=== PATIENT | male | born 1940 | race Caucasian/White ===

== ENCOUNTER 2021-06-09 08:14 | Emergency (ER) | payer MEDICARE, SELFPAY ==
--- NOTE | ~2021-06-09 | US_ITS ---
EXAMINATION: US VENOUS ULTRASOUND WITH DOPPLER LOWER EXTREMITY, LEFT CLINICAL INFORMATION: COMPARISON: None TECHNIQUE: Ultrasound of the deep veins is performed from the hip to the calf with compression sonography and color and pulse Doppler assessment. Spectral analysis with color-flow imaging is performed. FINDINGS: There is normal venous compression and respiratory variation and augmented flow. The visualized common femoral vein, superficial femoral vein, profunda femoral vein, popliteal vein, and the trifurcation region shows no evidence of deep venous thrombosis. There is no significant popliteal fossa cyst. If the patient's symptoms persist, followup ultrasound in 5 days 7 days might be of value to exclude proximal propagation from a non-visualized calf vein. US/US venous duplex LE LT IMPRESSION: No DVT demonstrated in the left lower extremity.
--- NOTE | ~2021-06-09 | US_ITS ---
EXAMINATION: ULTRASOUND ARTERIAL DUPLEX LOWER EXTREMITY LEFT CLINICAL INFORMATION: Left lower extremity pain and swelling. COMPARISON: None TECHNIQUE: Multiple 2-D grayscale and duplex Doppler ultrasound images of the arteries of the left lower extremity were obtained. FINDINGS: Mild to moderate scattered echogenic atherosclerotic plaque is seen in the left lower extremity. Peak systolic arterial velocities are as follows in centimeters per second: Common femoral: 118 Profunda femoral: 94 Proximal superficial femoral: 98 Mid superficial femoral: 75 Distal superficial femoral: 34 Popliteal: 46 Posterior tibial: 113 Peroneal: 62 US/US arterial duplex LE LT IMPRESSION: No hemodynamically significant arterial stenosis in the left lower extremity.
--- NOTE | ~2021-06-09 | CT_ITS ---
EXAMINATION CT CHEST, ABDOMEN AND PELVIS WITH CONTRAST CLINICAL INFORMATION: Left lower quadrant abdominal pain radiating to chest. COMPARISON: CT abdomen/pelvis dated 04/29/2016 TECHNIQUE: Multidetector volumetric CT imaging of the chest, abdomen and pelvis was obtained after the administration of 85 mL of intravenous Omnipaque 350 without immediate adverse reactions. Coronal and sagittal reformats were reviewed. This CT examination was performed using dose optimization techniques as appropriate, variously including the following: *Automated exposure control *Adjustment of mA and/or kV according to patient size (this includes techniques or standardized protocols for targeted exams where dose is matched to indication/reason for exam; i.e. extremities or head) *Use of iterative reconstruction technique DLP: 735 mGy-cm. FINDINGS: CHEST LUNGS/PLEURA: Mild emphysema. Mild bronchial wall thickening without bronchiectasis. Calcified granuloma, right lower lobe. No suspicious pulmonary nodules. There is no pleural effusion. No pleural mass or thickening. MEDIASTINUM/KP: Normal heart size. No pericardial effusion. Coronary calcifications. No mediastinal, hilar or supraclavicular lymphadenopathy by size criteria. Shotty reactive, lymph nodes are present. There is a calcified right paratracheal lymph node. CHEST WALL/AXILLA: Unremarkable. ABDOMEN/PELVIS HEPATOBILIARY: Liver normal in size, contour and morphology. There are a few scattered hepatic cysts, with the largest cyst in the right lobe having decreased in size prior exam. No suspicious lesions. No intra or extrahepatic biliary dilation. Cholelithiasis. No pericholecystic fluid. PANCREAS: Unremarkable. SPLEEN: Unremarkable. ADRENAL GLANDS: Unremarkable. KIDNEYS, URETERS AND BLADDER: There is a 3 mm stone in the proximal left ureter, located 7 cm distal to the ureteral pelvic junction associated with mild upstream hydroureter, pelvocaliectasis and diminished enhancement of the left kidney with respect to the right. Bilateral simple fluid attenuating renal cysts are present. These are benign and require no further follow-up. Right ureter normal in course and caliber. Normal bladder. GASTROINTESTINAL TRACT: Status post sigmoid colectomy. The remaining left colon shows scattered colonic diverticula without evidence of diverticulitis. Moderate hiatal hernia. Stomach otherwise unremarkable. Normal small bowel. PELVIC VISCERA: Unremarkable. LYMPH NODES: No lymphadenopathy. PERITONEUM/BODY WALL: Unremarkable. VASCULAR STRUCTURES: Status post aortobiiliac endovascular stent graft. The excluded sac has decreased measuring at most 4.3 cm, previously 6.5 cm. OSSEOUS STRUCTURES No acute or suspicious osseous abnormalities. CT/CT abdomen pelvis w con IMPRESSION: CHEST: * No acute findings within the chest. * Mild emphysema. ABDOMEN/PELVIS: * There is a 3 mm stone in the proximal LEFT ureter associated with mild obstructive uropathy. * Status post aortobiiliac endovascular stent graft repair of an abdominal aortic aneurysm, the excluded sac of which has decreased in size on the prior exam. * Cholelithiasis. * Sigmoid colectomy. Remaining left colon shows scattered colonic diverticula without evidence of diverticulitis. * Moderate hiatal hernia.
--- NOTE | 2021-06-09 08:22 | ED_ITS ---
HPI - General Adult General Chief complaint: Abdominal Pain <CRISTO Calvin Last Filed: 06/09/21 13:10> Stated complaint: abd pain <CRISTO Calvin Last Filed: 06/09/21 13:10> Time Seen by Provider: 06/09/21 08:22 <CRISTO Calvin Last Filed: 06/09/21 13:10> Source: patient, family (son) and EMS <CRISTO Calvin Last Filed: 06/09/21 13:10> Mode of arrival: EMS <CRISTO Calvin Last Filed: 06/09/21 13:10> Limitations: no limitations <CRISTO Calvin Last Filed: 06/09/21 13:10> History of Present Illness HPI narrative: Patient is a 81 year old male presenting to the emergency department today with left lower quadrant abdominal pain. Patient states that for the last few days he has had left lower quadrant abdominal pain. Patient denies any dizziness, lightheadedness, nausea, vomiting, fever, chills, blurry vision, double vision, loss of vision, chest pain, difficulty breathing, shortness of breath, back pain, night sweats, pain with urination, increased urinary frequency, increased urinary urgency, blood in his urine or stool, syncope or a near syncopal episode, recent trauma or falls, bowel incontinence, bladder incontinence, bowel retention, bladder retention, or any other complaints at this time. Patient states that he had a perforated bowel years ago that he had to have a colectomy for. Patient states that after the procedure, he had issues urinating and had to see a urologist but that has since resolved. <CRISTO Calvin - Last Filed: 06/09/21 13:10> Onset (ago): day(s) <CRISTO Calvin Last Filed: 06/09/21 13:10> Location: abdomen <CRISTO Calvin Last Filed: 06/09/21 13:10> Radiation: non-radiation <CRISTO Calvin Last Filed: 06/09/21 13:10> Severity: mild <CRISTO Calvin Last Filed: 06/09/21 13:10> Severity scale (1-10): 3 <CRISTO Calvin Filed: 06/09/21 13:10> Quality: dull <Carol CRISTO Pacheco - Last Filed: 06/09/21 13:10> Pain Consistency: constant <Carol CRISTO Pacheco - Last Filed: 06/09/21 13:10> Relieving factors: none <CRISTO Calvin - Last Filed: 06/09/21 13:10> Exacerbating factors: none <CRISTO Calvin - Last Filed: 06/09/21 13:10> Associated symptoms: denies other symptoms <CRISTO Calvin - Last Filed: 06/09/21 13:10> Treatments prior to arrival: none <CRISTO Calvin - Last Filed: 06/09/21 13:10> Related Data Allergies/adverse reactions: Allergies Allergy/AdvReac Type Severity Reaction Status Date / Time No Known Allergies Allergy Unverified 11/07/19 15:51 [No Known Allergies*] PENICILLIN Allergy Unknown SKIN Uncoded 08/08/17 00:00 BLISTERS <CRISTO Calvin - Last Filed: 06/09/21 13:10> Review of Systems Constitutional: Constitutional: Reports no additional constitutional complaints, Denies chills, Denies fever(s) and Denies night sweats <CRISTO Calvin - Last Filed: 06/09/21 13:10> Eyes: Eyes: Reports no additional eye complaints, Denies blurry vision, Denies change in vision, Denies diplopia, Denies eye discharge, Denies loss of vision and Denies eye pain <CRISTO Calvin - Last Filed: 06/09/21 13:10> ENT: Denies dizziness <CRISTO Calvin - Last Filed: 06/09/21 13:10> Cardiovascular: Cardiovascular: Reports no additional cardiovascular complaints, Denies chest pain, Denies lightheadedness, Denies Loss of Consciousness and Denies dyspnea <CRISTO Calvin - Last Filed: 13:10> Respiratory: Respiratory: Reports no additional respiratory complaints and Denies dyspnea <CRISTO Calvin - Last Filed: 06/09/21 13:10> Gastrointestinal: Gastrointestinal: Reports no additional gastrointestinal complaints, Reports abdominal pain, Denies melena, Denies hematochezia, Denies change in bowel habits and Denies change in stool character <CRISTO Calvin - Last Filed: 06/09/21 13:10> Genitourinary: Genitourinary: Reports no additional male genitourinary complaints, Denies hematuria, Denies oliguria, Denies difficulty urinating, Denies dysuria, Denies urinary frequency, Denies urinary hesitancy, Denies urinary incontinence and Denies urinary urgency <CRISTO Calvin - Last Filed: 06/09/21 13:10> Musculoskeletal: Musculoskeletal: Reports no additional musculoskeletal complaints, Denies numbness and Denies tingling <CRISTO Calvin - Last Filed: 06/09/21 13:10> Neurologic: Denies dizziness, Denies loss of vision, Denies numbness and Denies tingling <CRISTO Calvin - Last Filed: 06/09/21 13:10> Psychiatric: Psychiatric: Reports no additional psychiatric complaints <CRISTO Calvin - Last Filed: 06/09/21 13:10> Endocrine: Endocrine: Reports no additional endocrine complaints <CRISTO Calvin - Last Filed: 06/09/21 13:10> Hematologic/Lymphatic: Hematologic/Lymphatic: Reports no additional hematologic/lymphatic complaints <CRISTO Calvin - Last Filed: 06/09/21 13:10> Allergic/Immunologic: Allergic/Immunologic: Reports no additional allergic/immunologic complaints <CRISTO Calvin - Last Filed: 06/09/21 13:10> PMF Past Medical History Attestation statement: The following information was validated with the patient. <CRISTO Calvin - Last Filed: 06/09/21 13:10> Source: old records reviewed <CRISTO Calvin - Last Filed: 06/09/21 13:10> Medical History: Medical History Bowel obstruction Enlarged aorta <CRISTO Calvin - Last Filed: 06/09/21 13:10> Surgical History: Surgical History History of colostomy reversal <CRISTO Calvin - Last Filed: 06/09/21 13:10> Social History Social History: Social History Patient Tobacco Use Status: Former Tobacco user <CRISTO Calvin - Last Filed: 06/09/21 13:10> Physical Exam ED Vital Signs: Vital Signs - 24 hr 06/09/21 08:23 06/09/21 08:57 06/09/21 10:43 Temperature 98.7 F 98.0 F Pulse Rate 76 74 78 Respiratory Rate 20 16 18 Blood Pressure 162/74 H 145/71 H 160/62 H Pulse Oximetry 100 97 99 06/09/21 11:00 06/09/21 12:34 Temperature 98.1 F Pulse Rate 75 79 Respiratory Rate 18 16 Blood Pressure 152/58 H 153/75 H Pulse Oximetry 99 99 BMI result Body Mass Index 29.7 <CRISTO Calvin - Last Filed: 06/09/21 13:10> Const General: cooperative, no acute distress, alert and awake <CRISTO Calvin - Last Filed: 06/09/21 13:10> Nutritional Appearance: well nourished <CRISTO Calvin - Last Filed: 06/09/21 13:10> Orientation/consciousness: patient oriented x3 <CRISTO Calvin - Last Filed: 06/09/21 13:10> Limitations: no limitations <CRISTO Calvin - Last Filed: 06/09/21 13:10> HENMT Head: Yes normal to inspection and Yes atraumatic <CRISTO Calvin - Last Filed: 06/09/21 13:10> Ears: hearing grossly normal bilaterally and external ears normal <CRISTO Calvin - Last Filed: 06/09/21 13:10> General nose exam: Normal external nose present, no nasal discharge noted and no epistaxis <CRISTO Calvin - Last Filed: 06/09/21 13:10> Face and sinus: Yes normal facial exam, No abrasion and No laceration <CRISTO Calvin - Last Filed: 06/09/21 13:10> Mouth: Normal oral and palatal mucosa present, no drooling and no muffled voice <CRISTO Calvin - Last Filed: 06/09/21 13:10> Eyes General: appearance normal, both eyes and all related structures <Carol Pacheco NE - Last Filed: 06/09/21 13:10> Periorbital: periorbital findings normal <Carol Pacheco NE - Last Filed: 06/09/21 13:10> Eyelids: Yes eyelids normal <Carol Pacheco NE - Last Filed: 06/09/21 13:10> Conjunctivae: conjunctivae normal <Carol Pacheco NE - Last Filed: 06/09/21 13:10> Pupils: Equal, round and reactive pupils present <Carol Pacheco NE - Last Filed: 06/09/21 13:10> EOM: EOMs intact bilaterally <Carol Pacheco NE - Last Filed: 06/09/21 13:1 0> Neck Neck: Yes normal visual inspection, Yes full ROM and Yes no lymphadenopathy <Carol Pacheco NE - Last Filed: 06/09/21 13:10> Chest Chest palpation & inspection: normal inspection of the chest <Carol Pacheco NE - Last Filed: 06/09/21 13:10> Resp Effort & Inspection: normal respiratory effort and able to speak in complete sentences <Carol Pacheco NE - Last Filed: 06/09/21 13:10> Auscultation: clear to auscultation bilaterally <Carol Pacheco NE - Last Filed: 06/09/21 13:10> Cardio Rate: regular rate <Carol Pacheco NE - Last Filed: 06/09/21 13:10> Rhythm: regular rhythm <Carol Pacheco NE - Last Filed: 06/09/21 13:10> GI Inspection: Yes normal to inspection <Carol Pacheco [facility] Last Filed: 06/09/21 13:10> Palpation (GI): Soft to palpation, not firm, nontender, no guarding and not rigid <Ryan Pacheco NE - Last Filed: 06/09/21 13:10> Neuro General: patient oriented x3 and moves all extremities <Carol Pacheco NE - Last Filed: 06/09/21 13:10> Cranial nerves: Yes Equal, round and reactive pupils present <Carol Pacheco NE - Last Filed: 06/09/21 13:10> Cognition (Neuro): normal cognition <CRISTO Calvin - Last Filed: 06/09/21 13:10> Motor exam (neuro): 5/5 motor strength present throughout <CRISTO Calvin - Last Filed: 06/09/21 13:10> Sensory Exam: Normal double simultaneous stimulation for sensation <CRISTO Calvin - Last Filed: 06/09/21 13:10> Coordination: [id number] test normal <CRISTO Calvin - Last Filed: 06/09/21 13:10> Extrem General: Yes normal to inspection, Yes full ROM and Yes capillary refill normal <CRISTO Calvin - Last Filed: 06/09/21 13:10> Psych Appearance: grossly normal <CRISTO Calvin - Last Filed: 06/09/21 13:10> Mental Status: mental status grossly normal <CRISTO Calvin - Last Filed: 06/09/21 13:10> Affect: normal affect <CRISTO Calvin - Last Filed: 06/09/21 13:10> Attitude: cooperative <CRISTO Calvin - Last Filed: 06/09/21 13:10> Thought process: Normal thought process present <CRISTO Calvin Last Filed: 06/09/21 13:10> Thought content: Normal thought content present <CRISTO Calvin - Last Filed: 13:10> Insight: Good insight present (Psych) <CRISTO Calvin Last Filed: 06/09/21 13:10> Medical Decision Making MDM Narrative Medical decision making narrative: Patient is a 81 year old male presenting to the emergency department today with abdominal pain. Patient's physical exam was unremarkable. Patient's blood work was unremarkable. Patient's urine showed no acute process/infection. Patient's EKG was unremarkable. Patient's abdominal CT showed an acute 3mm left kidney stone. Patient's bladder scan after he voided 200ml showed a retention of 546ml. I spoke to Dr. Degroot, the Urologist residential direct support professional, who recommended the patient be given a polanco with a cap and follow up with him for a void trial. I explained my physical exam findings as well as all test results to the patient and the cristo sarmiento's son. I answered all questions asked by the patient and the patient's son. Patient received IV Morphine which he stated helped his symptoms significantly. I stressed the importance of the patient taking his medication as prescribed. I stressed the importance of the patient following up with his primary care provider and a urologist. I stressed the importance of the patient returning to the emergency department immediately if his symptoms were to worsen or if he were to develop any dizziness, shortness of breath, difficulty breathing, chest pain, blurry vision, loss of vision, nausea, vomiting, abdominal pain, fever, chills, back pain, or any other complaints. Patient and the patient's son verbalized agreement and understanding with this treatment plan and discharge. <CRISTO Calvin - Last Filed: 06/09/21 13:10> Differential Diagnosis Differential Diagnosis: renal calculi, bowel perforation, urinary retention, constipation <CRISTO Calvin - Last Filed: 06/09/21 13:10> Medical Records Medical records reviewed: Yes I reviewed the patient's medical records. <CRISTO Calvin - Last Filed: 06/09/21 13:10> Lab Data Lab results reviewed: Yes I reviewed the patient's lab results. <CRISTO Calvin - Last Filed: 06/09/21 13:10> Result diagrams: : 06/09/21 08:37 06/09/21 09:32 <CRISTO Calvin - Last Filed: 06/09/21 13:10> Labs: Lab Results 06/09/21 06/09/21 06/09/21 Range/Units 08:37 08:37 08:37 WBC 9.4 (4.8-10.8) X10*3/uL RBC 4.28 L (4.60-5.80) X10*6/uL Hgb 12.5 L (14.0-18.0) g/dl Hct 37.3 L (42.0-52.0) % MCV 87.1 (80.0-98.0) fL MCH 29.2 (27.0-33.0) pg MCHC 33.5 (31.0-36.0) g/dl RDW 13.7 (11.0-16.0) % Plt Count 170 (160-400) X10*3/uL MPV 9.4 (9.4-12.4) fL Immature Gran % (Auto) 1.3 H (0.0-0.4) % Neut % (Auto) 74.3 H (45-73) % Lymph % (Auto) 12.2 L (20-40) % Randolph % (Auto) 11.3 H (2-11) % Eos % (Auto) 0.5 (0-4) % Baso % (Auto) 0.4 (0-2) % Lymph # (Auto) 1.2 (1.2-4.9) X10*3/uL Randolph # (Auto) 1.1 (0.1-1.2) X10*3/uL Eos # (Auto) 0.1 (0.0-0.4) X10*3/uL Baso # (Auto) 0.0 (0.0-0.2) X10*3/uL Abs Immat Gran (auto) 0.12 H (0.00-0.03) X10*3/uL Absolute Neuts (auto) 7.0 (2.0-8.3) x10*3/uL Absolute Nucleated RBC 0.000 (0.0-0.012) X10*3/uL Nucleated RBC % (auto) 0.0 (0.0-0.2) /100WBC PT (9.9-13.0) SEC INR (0.9-1.1) APTT (24.1-38.0) SEC Sodium (135-145) mmol/L Potassium (3.3-5.1) mmol/L Chloride (96-108) mmol/L Carbon Dioxide (22-29) mmol/L Anion Gap (12-20) BUN (9-16) mg/dL Creatinine (0.5-1.4) mg/dL Estim Creat Clear Calc Estimated GFR Random Glucose (60-115) mg/dL Lactic Acid 1.6 (0.5-2.0) mmol/L Calcium (8.4-10.2) mg/dL Magnesium (1.6-2.6) mg/dL Total Bilirubin (0.0-1.0) mg/dL AST (5-37) U/L ALT (0-40) U/L Alkaline Phosphatase (39-117) U/L Troponin I High Sens 4.4 (<3.5-35.0) ng/L Total Protein (6.5-8.0) g/dL Albumin (3.5-5.0) g/dL Urine Color Urine Appearance Urine pH (5.0-8.0) Ur Specific [place] (1.005-1.025) Urine Protein (NEG-TRACE) MG/DL Urine Glucose (UA) (NEG) MG/DL Urine Ketones (NEG) MG/DL Urine Blood (NEG) Urine Nitrite (NEG) Ur Leukocyte Esterase (NEG) Urine RBC (0) /HPF Urine WBC (0-4) /HPF Ur Squamous Epith Cells /LPF Urine Bacteria /LPF Urine Mucus /LPF 06/09/21 06/09/21 06/09/21 Range/Units 09:32 09:32 11:28 WBC (4.8-10.8) X10*3/uL RBC (4.60-5.80) X10*6/uL Hgb (14.0-18.0) g/dl Hct (42.0-52.0) % MCV (80.0-98.0) fL MCH (27.0-33.0) pg MCHC (31.0-36.0) g/dl RDW (11.0-16.0) % Plt Count (160-400) X10*3/uL MPV (9.4-12.4) fL Immature Gran % (Auto) (0.0-0.4) % Neut % (Auto) (45-73) % Lymph % (Auto) (20-40) % Randolph % (Auto) (2-11) % Eos % (Auto) (0-4) % Baso % (Auto) (0-2) % Lymph # (Auto) (1.2-4.9) X10*3/uL Randolph # (Auto) (0.1-1.2) X10*3/uL Eos # (Auto) (0.0-0.4) X10*3/uL Baso # (Auto) (0.0-0.2) X10*3/uL Abs Immat Gran (auto) (0.00-0.03) X10*3/uL Absolute Neuts (auto) (2.0-8.3) x10*3/uL Absolute Nucleated RBC (0.0-0.012) X10*3/uL Nucleated RBC % (auto) (0.0-0.2) /100WBC PT 14.8 H (9.9-13.0) SEC INR 1.3 H (0.9-1.1) APTT 33.7 (24.1-38.0) SEC Sodium 137 (135-145) mmol/L Potassium 4.7 (3.3-5.1) mmol/L Chloride 106 (96-108) mmol/L Carbon Dioxide 23 (22-29) mmol/L Anion Gap 13 (12-20) BUN 19 H (9-16) mg/dL Creatinine 1.62 H (0.5-1.4) mg/dL Estim Creat Clear Calc 42.6 Estimated GFR 41 Random Glucose 103 (60-115) mg/dL Lactic Acid (0.5-2.0) mmol/L Calcium 8.9 (8.4-10.2) mg/dL Magnesium 2.1 (1.6-2.6) mg/dL Total Bilirubin 0.5 (0.0-1.0) mg/dL AST 22 (5-37) U/L ALT 17 (0-40) U/L Alkaline Phosphatase 59 (39-117) U/L Troponin I High Sens (<3.5-35.0) ng/L Total Protein 6.8 (6.5-8.0) g/dL Albumin 4.0 (3.5-5.0) g/dL Urine Color YELLOW Urine Appearance CLEAR Urine pH 6.0 (5.0-8.0) Ur Specific [place] 1.010 (1.005-1.025) Urine Protein NEG (NEG-TRACE) MG/DL Urine Glucose (UA) NEG (NEG) MG/DL Urine Ketones NEG (NEG) MG/DL Urine Blood TRACE (NEG) Urine Nitrite NEG (NEG) Ur Leukocyte Esterase NEG (NEG) Urine RBC 1-4 (0) /HPF Urine WBC 0 (0-4) /HPF Ur Squamous Epith Cells TRACE /LPF Urine Bacteria NONE /LPF Urine Mucus 1+ /LPF <CRISTO Calvin - Last Filed: 06/09/21 13:10> Imaging Data CT scan abd/chest: Attestation: I personally reviewed and interpreted this imaging study as follows: <CRISTO Calvin - Last Filed: 06/09/21 13:10> Radiologist's impression: EXAMINATION CT CHEST, ABDOMEN AND PELVIS WITH CONTRAST CLINICAL INFORMATION: Left lower quadrant abdominal pain radiating to chest.? COMPARISON: CT abdomen/pelvis dated 04/29/2016? TECHNIQUE: Multidetector volumetric CT imaging of the chest, abdomen and pelvis was obtained after the administration of 85 mL of intravenous Omnipaque 350 without immediate adverse reactions.? Coronal and sagittal reformats were reviewed. This CT examination was performed using dose optimization techniques as appropriate, variously including the following: *Automated exposure control *Adjustment of mA and/or kV according to patient size (this includes techniques or standardized protocols for targeted exams where dose is matched to indication/reason for exam; i.e. extremities or head) *Use of iterative reconstruction technique DLP: 735 mGy-cm. FINDINGS: CHEST LUNGS/PLEURA: Mild emphysema. Mild bronchial wall thickening without bronchiectasis. Calcified granuloma, right lower lobe. No suspicious pulmonary nodules. There is no pleural effusion. No pleural mass or thickening.? MEDIASTINUM/KP: Normal heart size. No pericardial effusion. Coronary calcifications. No mediastinal, hilar or supraclavicular lymphadenopathy by size criteria. Shotty reactive, lymph nodes are present. There is a calcified right paratracheal lymph node.? CHEST WALL/AXILLA: Unremarkable.? ABDOMEN/PELVIS HEPATOBILIARY: Liver normal in size, contour and morphology. There are a few scattered hepatic cysts, with the largest cyst in the right lobe having decreased in size prior exam. No suspicious lesions. No intra or extrahepatic biliary dilation. Cholelithiasis. No pericholecystic fluid. PANCREAS: Unremarkable. SPLEEN: Unremarkable. ADRENAL GLANDS: Unremarkable. KIDNEYS, URETERS AND BLADDER: There is a 3 mm stone in the proximal left ureter, located 7 cm distal to the ureteral pelvic junction associated with mild upstream hydroureter, pelvocaliectasis and diminished enhancement of the left kidney with respect to the right. Bilateral simple fluid attenuating renal cysts are present. These are benign and require no further follow-up. Right ureter normal in course and caliber. Normal bladder. GASTROINTESTINAL TRACT: Status post sigmoid colectomy. The remaining left colon shows scattered colonic diverticula without evidence of diverticulitis. Moderate hiatal hernia. Stomach otherwise unremarkable. Normal small bowel.? PELVIC VISCERA: Unremarkable. LYMPH NODES: No lymphadenopathy. PERITONEUM/BODY WALL: Unremarkable. VASCULAR STRUCTURES: Status post aortobiiliac endovascular stent graft. The excluded sac has decreased measuring at most 4.3 cm, previously 6.5 cm. OSSEOUS STRUCTURES? No acute or suspicious osseous abnormalities. ? CT/CT abdomen pelvis w con IMPRESSION: CHEST: *? No acute findings within the chest. *? Mild emphysema. ? ABDOMEN/PELVIS: *? There is a 3 mm stone in the proximal LEFT ureter associated with mild obstructive uropathy. *? Status post aortobiiliac endovascular stent graft repair of an abdominal aortic aneurysm, the excluded sac of which has decreased in size on the prior exam. *? Cholelithiasis. *? Sigmoid colectomy. Remaining left colon shows scattered colonic diverticula without evidence of diverticulitis. *? Moderate hiatal hernia. Dictated By: Chay Zavala MD Signed By: Electronically signed by Chay Zavala MD 06/09/21 1109 <CRISTO Calvin - Last Filed: 06/09/21 13:10> ECG Data Attestation: I personally reviewed and interpreted this ECG as follows: <CRISTO Villegas - Last Filed: 06/09/21 13:10> Prior ECG tracings: available for review <CRISTO Calvin - Last Filed: 06/09/21 13:10> Interpretation: Vent. Rate: 070 BPM ? ? Atrial Rate: 070 BPM P-R Int: 156 ms? QRS Dur: 076 ms QT Int: 400 ms ? ? ? P-R-T Axes: 075 -12 -03 degrees QTc Int: 432 ms ? Normal sinus rhythm Normal ECG When compared with ECG of 29-APR-2016 17:22, Vent. rate has decreased BY? 41 BPM ? Referred By: Carol Pacheco ? Electronically Signed By:BRYAN FUENTES MD Dictated By: Bryan Fuentes MD Signed By: Electronically signed by Bryan Fuentes MD <CRISTO Calvin - Last Filed: 06/09/21 13:10> Discharge Plan Discharge Clinical Impression: Acute urinary retention, Left renal stone <CRISTO Calvin - Last Filed: 06/09/21 13:10> Patient Disposition: Home, Self-Care <CRISTO Calvin - Last Filed: 06/09/21 13:10> Instructions: Kidney Stones (ED), Urinary Retention in Men (ED) <CRISTO Calvin - Last Filed: 06/09/21 13:10> Additional Instructions: Follow up with your primary care provider and the urologist. Return to the emergency department immediately if your symptoms worsen or if you develop any dizziness, shortness of breath, difficulty breathing, chest pain, blurry vision, loss of vision, nausea, vomiting, abdominal pain, fever, chills, back pain, or any other complaints. <CRISTO Calvin - Last Filed: 06/09/21 13:10> Referrals: Paulo Degroot MD [Physician] - 1 day (Call and follow up with him tomorrow 06/10/2021) Physician,Enoch Elaine [Primary Care Provider] - <CRISTO Calvin - Last Filed: 06/09/21 13:10> Interventions: ED Discharge Assessment Last Done: 06/09/21 12:42 <CRISTO Calvin - Last Filed: 06/09/21 13:10> Discharge Date/Time: 06/09/21 12:43 <CRISTO Calvin - Last Filed: 06/09/21 13:10> Print Language: [place]se <CRISTO Calvin - Last Filed: 06/09/21 13:10>
[2021-06-09 08:23] VITALS: BP 140/82; BP 162/74; PULSE 76; PULSE 82; RESP 20; O2SAT 100; O2SAT 99; BMI 29.7
--- NOTE | 2021-06-09 08:27 | ECG_ITS ---
Test Reason : ABDOMINAL PAIN Blood Pressure : / mmHG Vent. Rate : 070 BPM Atrial Rate : 070 BPM P-R Int : 156 ms QRS Dur : 076 ms QT Int : 400 ms P-R-T Axes : 075 -12 -03 degrees QTc Int : 432 ms Normal sinus rhythm Normal ECG When compared with ECG of 29-APR-2016 17:22, Vent. rate has decreased BY 41 BPM Referred By: Carol Pacheco Electronically Signed By:SONNY FUENTES MD
[2021-06-09 08:42] LABS: MANUAL DIFF FLAG NO
[2021-06-09 08:45] LABS: Basophils Percent Auto 0.4 % (0-2); Eosinophils Absolute Auto 0.1 X10*3/uL (0.0-0.4); Eosinophils Percent Auto 0.5 % (0-4); Hematocrit 37.3 % (42.0-52.0); Hemoglobin 12.5 g/dl (14.0-18.0); Imm Gran Abs Auto 0.12 X10*3/uL (0.00-0.03); Imm Gran Pct Auto 1.3 % (0.0-0.4); Lymphocytes Absolute Auto 1.2 X10*3/uL (1.2-4.9); Lymphocytes Percent Auto 12.2 % (20-40); Mean Corpuscular HGB Conc 33.5 g/dl (31.0-36.0); Mean Corpuscular Hemoglobin 29.2 pg (27.0-33.0); Mean Corpuscular Volume 87.1 fL (80.0-98.0); Mean Platelet Volume 9.4 fL (9.4-12.4); Monocytes Absolute Auto 1.1 X10*3/uL (0.1-1.2); Monocytes Percent Auto 11.3 % (2-11); Neutrophils Percent Auto 74.3 % (45-73); Platelet Count 170 X10*3/uL (160-400); Red Blood Count 4.28 X10*6/uL (4.60-5.80); Red Cell Distribution Width 13.7 % (11.0-16.0); White Blood Count 9.4 X10*3/uL (4.8-10.8)
[2021-06-09 08:56] LABS: Lactic Acid 1.6 mmol/L (0.5-2.0)
[2021-06-09 08:57] VITALS: BP 145/71; PULSE 74; RESP 16; TEMP 37.1; O2SAT 97
[2021-06-09 09:04] LABS: Troponin-I High Sensitivity 4.4 ng/L (<3.5-35.0)
[2021-06-09 09:45] LABS: INTERNATIONAL NORM RATIO 1.3 (0.9-1.1); Prothrombin Time 14.8 SEC (9.9-13.0)
[2021-06-09 09:47] LABS: Partial Thromboplastin Time 33.7 SEC (24.1-38.0)
[2021-06-09 09:59] LABS: Alanine Aminotransferase 17 U/L (0-40); Alkaline Phosphatase 59 U/L (39-117); Anion Gap 13 (12-20); Aspartate Amino Transferase 22 U/L (5-37); Bilirubin Total 0.5 mg/dL (0.0-1.0); Blood Urea Nitrogen 19 mg/dL (9-16); Calcium 8.9 mg/dL (8.4-10.2); Carbon Dioxide 23 mmol/L (22-29); Chloride 106 mmol/L (96-108); Creatinine Clr Calc Pharmacy 42.6; Estimated Glomerular Filt Rate 41; Glucose Random 103 mg/dL (60-115); Magnesium 2.1 mg/dL (1.6-2.6); Potassium 4.7 mmol/L (3.3-5.1); Sodium 137 mmol/L (135-145); Total Protein 6.8 g/dL (6.5-8.0)
[2021-06-09] MEDS: iohexoL 350 MG/ML 100 ML INFUS..BTL IV (10:23)
[2021-06-09 10:43] VITALS: BP 160/62; PULSE 78; RESP 18; TEMP 36.7; O2SAT 99
[2021-06-09] MEDS: Morphine Sulfate 4 MG/ML CARTRIDGE IVPUSH (10:58)
[2021-06-09 11:00] VITALS: BP 152/58; PULSE 75; RESP 18; O2SAT 99
[2021-06-09 11:35] LABS: Appearance Urine CLEAR; Color Urine YELLOW; Glucose Urine UA NEG (NEG); Leukocyte Esterase Urine NEG (NEG); Nitrite Urine NEG (NEG); UACC Culture Trigger NO; Urine Blood TRACE (NEG); Urine Ketones NEG (NEG); Urine Protein NEG (NEG-TRACE)
[2021-06-09 11:49] LABS: WBC Urine 0 /HPF (0-4)
[2021-06-09 11:50] LABS: Mucus Urine 1+ /LPF; Squamous Epithelial Cell Urine TRACE /LPF
[2021-06-09 12:34] VITALS: BP 153/75; PULSE 79; RESP 16; TEMP 36.7; O2SAT 99
--- NOTE | 2021-06-09 12:38 | PC.NURSE ---
800 ml drained from polanco when placed. plug placed on end of cath, bag removed, and patient and son shown how to empty catheter. patient has had polanco at home in past.
== END 2021-06-09 12:43 | disposition home or self-care (01) ==
PROVIDERS: Physician Assistant Medical; Emergency Provider Emergency Medicine
DX: N20.0 Calculus of kidney (principal); R33.9 Retention of urine, unspecified; M79.605 Pain in left leg; M79.89 Other specified soft tissue disorders; Z87.19 Personal history of other diseases of the digestive system
CPT/HCPCS: 36415; 71260; 74177; 80053; 81001; 83605; 83735; 84484; 85025; 85610; 85730; 93005; 93926; 93971; 96374; 99284; 99285; J2270; Q9967

== ENCOUNTER → 2021-06-16 09:16 | Outpatient (BNVA) | payer MEDICARE, SELFPAY | PROVIDERS: Visit Provider Urology | DX: R33.9 Retention of urine, unspecified (principal) | CPT/HCPCS: 51702; 51798 ==

== ENCOUNTER → 2021-07-16 09:16 | Outpatient (BNVA) | payer MEDICARE, SELFPAY | PROVIDERS: Visit Provider Urology | DX: R33.9 Retention of urine, unspecified (principal) | CPT/HCPCS: 51700; 51702; 51798 ==

== ENCOUNTER → 2021-08-17 09:36 | Outpatient (BNVA) | payer MEDICARE, SELFPAY | PROVIDERS: Visit Provider Urology | DX: R33.9 Retention of urine, unspecified (principal) | CPT/HCPCS: 51700; 52000; 99212 ==

== ENCOUNTER → 2021-09-28 14:36 | Outpatient (BNVA) | payer MEDICARE, SELFPAY | PROVIDERS: Visit Provider Urology | DX: R33.9 Retention of urine, unspecified (principal) | CPT/HCPCS: 51702 ==

== ENCOUNTER → 2021-10-26 14:38 | Outpatient (BNVA) | payer MEDICARE, SELFPAY | PROVIDERS: Visit Provider Urology | DX: Z46.6 Encounter for fitting and adjustment of urinary device (principal); R33.9 Retention of urine, unspecified | CPT/HCPCS: 51702 ==

== ENCOUNTER → 2021-11-23 15:01 | Outpatient (BNVA) | payer MEDICARE, SELFPAY | PROVIDERS: PCP Internal Medicine; Visit Provider Urology | DX: Z46.6 Encounter for fitting and adjustment of urinary device (principal); R33.9 Retention of urine, unspecified | CPT/HCPCS: 51702 ==

== ENCOUNTER → 2021-12-21 15:30 | Outpatient (BNVA) | payer MEDICARE, SELFPAY | PROVIDERS: PCP Internal Medicine; Visit Provider Urology | DX: R33.9 Retention of urine, unspecified (principal) | CPT/HCPCS: 51702; 99212 ==

== ENCOUNTER 2021-12-31 13:44 | Outpatient (REF) | payer MEDICARE, SELFPAY ==
[2021-12-31 14:40] LABS: Appearance Urine Turbid; Color Urine Yellow; Glucose Urine UA Negative (Negative); Leukocyte Esterase Urine Large (3+) (Negative); Nitrite Urine Positive (Negative); PH 8.5 (5.0-9.0); UMIC TRIGGER UA YES; Urine Blood Large (3+) (Negative); Urine Ketones Trace mg/dL (Negative); Urine Protein 300 (3+) mg/dL (Neg-Trace)
[2021-12-31 14:51] LABS: Bacteria Urine 4+ (None Seen); Other Crystals Urine Present; RBC Urine >20 /HPF (0-2); Squamous Epithelial Cell Urine 0-2 /HPF (0-2); WBC Urine >50 /HPF (0-5)
== END 2021-12-31 13:45 | disposition home or self-care (01) ==
LOC: HO.LAB 13:44
PROVIDERS: Visit Provider Urology
DX: R33.9 Retention of urine, unspecified (principal)
CPT/HCPCS: 81001; 87086

== ENCOUNTER → 2022-01-18 14:47 | Outpatient (BNVA) | payer MEDICARE, SELFPAY | PROVIDERS: Visit Provider Urology | DX: R33.9 Retention of urine, unspecified (principal) | CPT/HCPCS: 51702 ==

== ENCOUNTER → 2022-02-15 15:24 | Outpatient (BNVA) | payer MEDICARE, SELFPAY | PROVIDERS: PCP Internal Medicine; Visit Provider Urology | DX: R33.9 Retention of urine, unspecified (principal); Z46.6 Encounter for fitting and adjustment of urinary device | CPT/HCPCS: 51702; 99212 ==

== ENCOUNTER → 2022-03-15 14:41 | Outpatient (BNVA) | payer MEDICARE, SELFPAY | PROVIDERS: PCP Internal Medicine; Visit Provider Urology | DX: R33.9 Retention of urine, unspecified (principal) | CPT/HCPCS: 51702 ==

== ENCOUNTER → 2022-04-12 14:38 | Outpatient (BNVA) | payer MEDICARE, SELFPAY | PROVIDERS: PCP Internal Medicine; Visit Provider Urology | DX: R33.9 Retention of urine, unspecified (principal) | CPT/HCPCS: 51702; 99212 ==

== ENCOUNTER 2022-05-23 11:09 | Day surgery (SDC) | payer MEDICARE, SELFPAY ==
[2022-05-23 12:36] VITALS: BMI 30.9
[2022-05-23 12:56] VITALS: BP 157/70; PULSE 78; RESP 16; TEMP 36.2; O2SAT 98
--- NOTE | 2022-05-23 13:34 | P.CONAN_ITS ---
HPI - Anesthesia Eval Consult details Narrative: Suprapubic carheter placement PMFSH Active Problems Active Problems: All Active Problems (Updated 05/18/22 @ 08:52 by Mis Mcfarlane RN) Urinary retention (Acute) Past Medical History Medical History Anemia Bowel obstruction Diverticulitis Enlarged aorta Urinary retention Family History Family history of problems with anesthesia: No Surgical History Surgical History H/O colonoscopy History of AAA (abdominal aortic aneurysm) repair History of colon resection History of colostomy reversal History of prostate surgery History of surgery Hx of appendectomy Hx of cataract surgery History of Problems with Anesthesia: No Social History Social History (Updated 05/18/22 @ 08:59 by Mis Mcfarlane RN) Patient Tobacco Use Status: Former Tobacco user Quit Date: 30 yr ago Use of substances other than those prescribed or required for medical reasons: No Are you DNR?: No Advance Directives: No Advance Directives Information Provided: Yes Meds Allergies Allergy/AdvReac Type Severity Reaction Status Date / Time Penicillins Allergy Intermediate skin Verified 05/17/22 13:48 blisters Active Medications: Current Medications Levofloxacin (Levaquin) 500 mg in 100 mls @ 100 mls/hr IV PREOP ONE Stop: 05/23/22 13:56 Exam Exam Date and Time: May 23, 2022 1334 Height,Weight and Vital Signs: Height 5 ft 7.5 in Weight 90.889 kg Last Vital Signs Temp 97.1 F 05/23/22 12:56 Pulse 78 05/23/22 12:56 Resp 16 05/23/22 12:56 BP 157/70 H 05/23/22 12:56 Pulse Ox 98 05/23/22 12:56 O2 Del Method Room Air 05/23/22 12:56 Airway Mallampati Class: II TM Dist: >3cm Neck ROM: Limited Denture: Lower Heart: rrr Lungs: cta Assessment and Plan Assessment Anesthesia Assessment: Anesthesia Plan Discussed and Chart Reviewed Final Anesthetic Review Family History of Problems with Anesthesia: No History of Problems with Anesthesia: No NPO: Yes ASA Class: III Final Preanesthetic Review: No Changes in Pt Med Stat, Meds/Allgs Chart R ousmaned, Consent Obtained/Reviewed and Anes Risks/Benef Reviewed Patient Risk: Intermediate Procedure Risk: Low Anesthetic Plan Anesthetic Plan: MAC: Disposition: Standard PACU
--- NOTE | 2022-05-23 14:07 | P.HPSUR_ITS ---
Pre-Procedural Eval Section A Date of Service: 05/23/22 The patient is an INPATIENT: No Changes since office visit: No Cold of Flu in the past 2 weeks, No New Medical Problems, No Changes in Medication and No Patient answered all questions The History & Physical has been completed within 30 days and I have reviewed it.: Yes Section B Chief Complaint: Retention of urine, unspecified Allergies: Allergies Allergy/AdvReac Type Severity Reaction Status Date / Time Penicillins Allergy Intermediate skin Verified 05/17/22 13:48 blisters Review of Systems Sugical H&P ROS: Negative: Constitution, Cardiovascular, Respiratory, Neurological, Psychiatric, Hem-Onc, Allergic/Immunologic, Gastrointestinal, Mirna tourinary, Musculoskeletal, Integumentary, Endocrine and Eyes/Ears/Nose/Throat Exam Surgical H&P Exam: Normal: HEENT, Normal: Heart, Normal: Lungs, Normal: Extremities, Normal: Abdomen, Normal: Skin and Normal: Neurological Plan Diagnosis/Plan: Unchanged ( cystoscopy, suprapubic tube placement) I have reviewed the history and physical and performed a pertinent physical examination on my patient. No changes have occurred unless specified. Time Spent With Patient Time: Total time managing care of this patient today ____ minutes.
--- NOTE | 2022-05-23 14:51 | W.PM.OPN ---
Operative Note Operative Note Date of Service: 05/23/22 Narrative: PreOperative Diagnosis:?neurogenic bladder Post Operative Diagnosis:?neurogenic bladder Procedure:? 1. Cystoscopy 2. Suprapubic tube placement Surgeon: Dr Paulo Degroot Anesthesia:?Sedation plus local Indications for procedure: failed voiding trial multiple times Procedure: After informed consent was verified the patient was brought to the operating room and placed in a supine position.? Anesthesia was administered per protocol. The patient was placed in a modified dorsal lithotomy position and prepped and draped in a sterile fashion. A safety pause was performed confirming patient identity, procedure and antibiotics. A 22 Australian cystoscope was inserted per urethra. Bladder was examined in its entirety. No abnormalities seen. Air bubble was located at the dome of the bladder. A finder needle was inserted 2 fingerbreaths above the symphysis pubis on the abdomen into the bladder.? The needle was visualized in the bladder via cystoscopy. He did have a prior abdominal incision that finished prior to the symphysis pubis. Local anesthetic was infiltrated subcutaneously around the needle introduction site. A small, 1cm horizontal incision was made.? A trocar introducer was advanced through the abdominal wall into the bladder under visualization. The obturator was removed and a 16 Fr polanco catheter placed. 7cc was used to inflate the balloon. The external portion of the trocar was removed. Dressing was placed, the bladder was emptied, and a drainage bag was attached. The patient tolerated the procedure and was transferred in stable condition to the recovery area. Suprapubic tube will be changed in 1 month with a follow-up office visit.
[2022-05-23 15:01] VITALS: BP 119/63; PULSE 72; RESP 16; TEMP 36.9; O2SAT 99
[2022-05-23 15:06] VITALS: BP 117/67; PULSE 69; RESP 16; O2SAT 99
[2022-05-23 15:11] VITALS: BP 134/63; PULSE 68; RESP 16; O2SAT 98
[2022-05-23 15:16] VITALS: BP 137/65; PULSE 71; RESP 16; O2SAT 98
[2022-05-23 15:28] VITALS: BP 144/67; PULSE 66; RESP 16; TEMP 36.1; O2SAT 99
== END 2022-05-23 15:54 | disposition home or self-care (01) ==
LOC: HO.SSS 11:10
PROVIDERS: Visit Provider Urology
PROC: (CPT 51102; principal; 2022-05-23 13:00)
DX: R33.9 Retention of urine, unspecified (principal); N31.9 Neuromuscular dysfunction of bladder, unspecified; D64.9 Anemia, unspecified; I71.40 Abdominal aortic aneurysm, without rupture, unspecified; Z98.890 Other specified postprocedural states; Z87.19 Personal history of other diseases of the digestive system; Z90.49 Acquired absence of other specified parts of digestive tract; Z79.899 Other long term (current) drug therapy; Z88.0 Allergy status to penicillin; Z87.891 Personal history of nicotine dependence
CPT/HCPCS: 51102; J1100; J1956; J2405; J2795

== ENCOUNTER → 2022-06-21 09:03 | Outpatient (BNVA) | payer MEDICARE, SELFPAY | PROVIDERS: Visit Provider Urology | DX: R33.9 Retention of urine, unspecified (principal); Z96.0 Presence of urogenital implants | CPT/HCPCS: 51705; 99212 ==

== ENCOUNTER → 2022-07-20 15:33 | Outpatient (BNVA) | payer MEDICARE, SELFPAY | PROVIDERS: PCP Internal Medicine; Visit Provider Urology | DX: Z43.5 Encounter for attention to cystostomy (principal); R33.9 Retention of urine, unspecified | CPT/HCPCS: 51705 ==

== ENCOUNTER → 2022-08-25 13:29 | Outpatient (BNVA) | payer MEDICARE, SELFPAY | PROVIDERS: Visit Provider Urology | DX: R33.9 Retention of urine, unspecified (principal) | CPT/HCPCS: 51705 ==

== ENCOUNTER → 2022-09-29 15:36 | Outpatient (BNVA) | payer MEDICARE, SELFPAY | PROVIDERS: PCP Internal Medicine; Visit Provider Urology | DX: R33.9 Retention of urine, unspecified (principal) | CPT/HCPCS: 51705 ==

== ENCOUNTER → 2022-11-03 15:31 | Outpatient (BNVA) | payer MEDICARE, SELFPAY | PROVIDERS: PCP Internal Medicine; Visit Provider Urology | DX: R33.9 Retention of urine, unspecified (principal) | CPT/HCPCS: 51705 ==

== ENCOUNTER → 2022-12-08 15:36 | Outpatient (BNVA) | payer MEDICARE, SELFPAY | PROVIDERS: PCP Internal Medicine; Visit Provider Urology | DX: R33.9 Retention of urine, unspecified (principal) | CPT/HCPCS: 51705 ==

== ENCOUNTER 2022-12-20 15:26 | Outpatient (AMB) | payer MEDICARE, SELFPAY ==
--- NOTE | 2022-12-20 15:37 | MHC.OFFVIS ---
Intake Intake Visit Reasons: 6m/SPT change Intake Note: Patient is Present for Follow Up Urology Medication: Finasteride, Methenamine, Terazosin Antibiotic Allergies: Penicillins Blood Thinners: None Allergies Penicillins Allergy (Intermediate, Verified 06/21/22 09:18) skin blisters HPI HPI Comments History of Present Illness Details Og is a very pleasant [place] speaking male. He is a patient of Dr. Tucker. He is seen for the following urologic conditions - urinary retention Six month visit Continues with catheter exchange Antibiotics morning and evening of catheter 18 [place] 6 month follow-up Urinary retention Prior prostate procedure 2016 Had admission to emergency room in June with urinary retention Started on finasteride and Flomax Failed his 1st and 2nd voiding trial Cystoscopy 08/11 wide open bladder neck - prior TURP Unable to teach CIC Suprapubic tube placed 06/12 [facility] Medical History Anemia Diverticulitis Urinary retention Enlarged aorta Bowel obstruction Surgical History Hx of appendectomy History of AAA (abdominal aortic aneurysm) repair Hx of cataract surgery History of prostate surgery History of surgery History of colon resection H/O colonoscopy History of colostomy reversal Social History Patient Tobacco Use Status: Former Tobacco user Quit Date: 30 yr ago Review of Systems Const Denies chills and Denies fever(s) Card Reports no additional complaints and Denies syncope Resp Denies cough GI Denies abdominal pain and Denies heartburn Reports as per HPI and Denies change in libido Neuro Denies syncope Psych Denies change in libido Endo Denies change in libido Physical Exam Const General: cooperative, healthy appearing, comfortable and no acute distress Orientation/consciousness: patient oriented x3 HEENT Face and sinus: Yes normal facial exam Mouth: moist mucous membranes Neck Neck: Yes normal visual inspection, Yes full ROM and Yes trachea midline Chest Chest palpation & inspection: normal inspection of the chest Resp Effort & Inspection: normal respiratory effort, able to speak in complete sentences and no respiratory distress GI Inspection: Yes normal to inspection Back/Spine/Pelvis Cervical Spine: normal cervical lordosis Thoracic/Lumbar Spine: thoracic and lumbar spine normal to inspection Skin General skin exam: no rashes or lesions noted Neuro General: patient oriented x3, gait normal, tone normal and moves all extremities Extrem General: Yes normal to inspection and Yes capillary refill normal Assessment & Plan Assessment & Plan (1) Urinary retention: Comment: has indwelling polanco catheter Code(s): R33.9 - Retention of urine, unspecified Plan Continue suprapubic maintainence Patient Instructions: Imaging studies, laboratory and physical exam results were discussed and reviewed in detail. No major barriers to patient understanding were identified. An opportunity to ask questions regarding the treatment plan was provided. All questions were answered. The patient expressed understanding and agreement with the above treatment plan. The patient is aware they should contact our office by phone for worsening of their current condition or the appearance of new urologic symptoms. Compliance is encouraged with any medications and followup testing that is ordered. It is a privilege to participate in the urologic care of your patient. If you have any questions or concerns regarding treatment for the above conditions, or other urologic issues, please do not hesitate to contact me. The office telephone contact is [phone]. This note is constructed using voice recognition software. While every effort has been made to ensure accuracy independent distributor errors may have been included. Yours sincerely, Dr Paulo Degroot MD, [facility] - Urology Providers of Expert, Compassionate Care for the Genitourinary System Coding Level of Care Code Est Pt Level 3 (37913) Diagnoses Urinary retention R33.9
== END 2022-12-20 16:04 | disposition home or self-care (01) ==
PROVIDERS: Visit Provider Urology
DX: R33.9 Retention of urine, unspecified (principal)
CPT/HCPCS: 99213

== ENCOUNTER → 2022-12-20 15:26 | Outpatient (BNVA) | payer MEDICARE, SELFPAY | PROVIDERS: Visit Provider Urology | DX: R33.9 Retention of urine, unspecified (principal) | CPT/HCPCS: 99212 ==

== ENCOUNTER → 2023-01-09 15:34 | Outpatient (BNVA) | payer MEDICARE, SELFPAY | PROVIDERS: PCP Internal Medicine; Visit Provider Urology | DX: R33.9 Retention of urine, unspecified (principal) | CPT/HCPCS: 51705 ==

== ENCOUNTER → 2023-02-14 15:38 | Outpatient (BNVA) | payer MEDICARE, SELFPAY | PROVIDERS: PCP Internal Medicine; Visit Provider Urology | DX: R33.9 Retention of urine, unspecified (principal) | CPT/HCPCS: 51705 ==

== ENCOUNTER → 2023-03-21 15:03 | Outpatient (BNVA) | payer MEDICARE, SELFPAY | PROVIDERS: PCP Internal Medicine; Visit Provider Urology | DX: Z43.5 Encounter for attention to cystostomy (principal); R33.9 Retention of urine, unspecified | CPT/HCPCS: 51705 ==

== ENCOUNTER → 2023-04-27 15:25 | Outpatient (BNVA) | payer MEDICARE, SELFPAY | PROVIDERS: PCP Internal Medicine; Visit Provider Urology | DX: R33.9 Retention of urine, unspecified (principal) | CPT/HCPCS: 51705 ==

== ENCOUNTER → 2023-06-01 15:17 | Outpatient (BNVA) | payer MEDICARE, SELFPAY | PROVIDERS: PCP Internal Medicine; Visit Provider Urology | DX: R33.9 Retention of urine, unspecified (principal) | CPT/HCPCS: 51705 ==

== ENCOUNTER 2023-06-14 15:31 | Outpatient (AMB) | payer MEDICARE, SELFPAY ==
--- NOTE | 2023-06-14 15:50 | MHC.OFFVIS ---
Intake Visit Reasons: 6m follow up/Cath change Allergies Penicillins Allergy (Intermediate, Verified 06/21/22 09:18) skin blisters Medication List - Last Reconciled 06/14/23 by Paulo Degroot MD ascorbic acid (vitamin C) 500 mg PO DAILY 90 days methenamine hippurate 1 g PO DAILY 90 days sulfamethoxazole-trimethoprim 800-160 mg (Bactrim DS) 1 tab PO bid 12 days HPI Comments Details: Og is a very pleasant [place] speaking male. He is a patient of Dr. Tucker. He is seen for the following urologic conditions - urinary retention Six-month follow-up Suprapubic tube has been in place for 1 year Continues with catheter exchange Antibiotics morning and evening of catheter 18 [place] Remains on methenamine with vitamin-C for suppression Happy with current situation Urinary retention Prior prostate procedure 2016 Had admission to emergency room in June with urinary retention Started on finasteride and Flomax Failed his 1st and 2nd voiding trial Cystoscopy 08/11 wide open bladder neck - prior TURP Unable to teach [facility] Suprapubic tube placed 06/12 [facility] Medical History (Updated 06/15/23 @ 15:36 by Paulo Degroot MD) Anemia Diverticulitis Urinary retention Enlarged aorta Bowel obstruction Surgical History Hx of appendectomy History of AAA (abdominal aortic aneurysm) repair Hx of cataract surgery History of prostate surgery History of surgery History of colon resection H/O colonoscopy History of colostomy reversal Social History Patient Tobacco Use Status: Former Tobacco user Quit Date: 30 yr ago Review of Systems Const Denies chills and Denies fever(s) Card Reports no additional complaints and Denies syncope Resp Denies cough GI Denies abdominal pain and Denies heartburn Reports as per HPI and Denies change in libido Neuro Denies syncope Psych Denies change in libido Endo Denies change in libido Physical Exam Const General: cooperative, healthy appearing, comfortable and no acute distress Orientation/consciousness: patient oriented x3 HEENT Face and sinus: Yes normal facial exam Mouth: moist mucous membranes Neck Neck: Yes normal visual inspection, Yes full ROM and Yes trachea midline Chest Chest palpation & inspection: normal inspection of the chest Resp Effort & Inspection: normal respiratory effort, able to speak in complete sentences and no respiratory distress GI Inspection: Yes normal to inspection Back/Spine/Pelvis Cervical Spine: normal cervical lordosis Thoracic/Lumbar Spine: thoracic and lumbar spine normal to inspection Skin General skin exam: no rashes or lesions noted Neuro General: patient oriented x3, gait normal, tone normal and moves all extremities Extrem General: Yes normal to inspection and Yes capillary refill normal Assessment & Plan Assessment & Plan (1) Urinary retention: Comment: Suprapubic tube Code(s): R33.9 - Retention of urine, unspecified Category: Medical (2) Hypotonic neurogenic bladder: Code(s): N31.9 - Neuromuscular dysfunction of bladder, unspecified Category: Medical Plan Six-month follow-up Medications: Changed From sulfamethoxazole-trimethoprim 800-160 mg (Bactrim DS) Take 1 tablet morning and afternoon of suprapubic tube change 1 tab PO bid 5 days 10 tabs 0RF R33.9 - Retention of urine, unspecified To sulfamethoxazole-trimethoprim 800-160 mg (Bactrim DS) Take 1 tablet morning and afternoon of suprapubic tube change 1 tab PO bid 24 tabs 0RF 12 days R33.9 - Retention of urine, unspecified Refilled methenamine hippurate 1 g PO DAILY 90 tabs 1RF UTI suppression 90 days ascorbic acid (vitamin C) 500 mg PO DAILY 90 tabs 1RF UTI suppression 90 days Discontinued finasteride Discontinued Reason: Doctor's Order 5 mg PO DAILY 90 days 90 tabs 3RF N13.8 - Other obstructive and reflux uropathy, N40.1 - Benign prostatic hyperplasia with lower urinary tract symptoms, R33.9 - Retention of urine, unspecified terazosin Discontinued Reason: Doctor's Order 10 mg PO BEDTIME 90 days 90 caps 1RF N13.8 - Other obstructive and reflux uropathy, N40.0 - Benign prostatic hyperplasia without lower urinary tract symptoms, N40.1 - Benign prostatic hyperplasia with lower urinary tract symptoms, R33.9 - Retention of urine, unspecified Patient Instructions: Imaging studies, laboratory and physical exam results were discussed and reviewed in detail. No major barriers to patient understanding were identified. An opportunity to ask questions regarding the treatment plan was provided. All questions were answered. The patient expressed understanding and agreement with the above treatment plan. The patient is aware they should contact our office by phone for worsening of their current condition or the appearance of new urologic symptoms. Compliance is encouraged with any medications and followup testing that is ordered. It is a privilege to participate in the urologic care of your patient. If you have any questions or concerns regarding treatment for the above conditions, or other urologic issues, please do not hesitate to contact me. The office telephone contact is [phone]. This note is constructed using voice recognition software. While every effort has been made to ensure accuracy lead qa analyst errors may have been included. Yours sincerely, Dr Paulo Degroot MD, [facility] - Urology Providers of Expert, Compassionate Care for the Genitourinary System Coding Level of Care Code Est Pt Level 3 (36497) Complex EM visit Add On G2211 Diagnoses Urinary retention R33.9 Hypotonic neurogenic bladder N31.9
== END 2023-06-14 16:05 | disposition home or self-care (01) ==
PROVIDERS: PCP Internal Medicine; Visit Provider Urology
DX: R33.9 Retention of urine, unspecified (principal); N31.9 Neuromuscular dysfunction of bladder, unspecified
CPT/HCPCS: 99213; G2211

== ENCOUNTER → 2023-06-14 15:31 | Outpatient (BNVA) | payer MEDICARE, SELFPAY | PROVIDERS: PCP Internal Medicine; Visit Provider Urology | DX: R33.9 Retention of urine, unspecified (principal); N31.9 Neuromuscular dysfunction of bladder, unspecified | CPT/HCPCS: 99212 ==

== ENCOUNTER → 2023-07-06 14:43 | Outpatient (BNVA) | payer MEDICARE, SELFPAY | PROVIDERS: PCP Internal Medicine; Visit Provider Urology | DX: N31.9 Neuromuscular dysfunction of bladder, unspecified (principal); R33.9 Retention of urine, unspecified | CPT/HCPCS: 51705 ==

== ENCOUNTER → 2023-08-07 15:29 | Outpatient (BNVA) | payer MEDICARE, SELFPAY | PROVIDERS: PCP Internal Medicine; Visit Provider Urology | DX: N31.9 Neuromuscular dysfunction of bladder, unspecified (principal); R33.9 Retention of urine, unspecified | CPT/HCPCS: 51705 ==

== ENCOUNTER → 2023-09-11 15:28 | Outpatient (BNVA) | payer MEDICARE, SELFPAY | PROVIDERS: PCP Internal Medicine; Visit Provider Urology | DX: N31.9 Neuromuscular dysfunction of bladder, unspecified (principal); R33.9 Retention of urine, unspecified; Z46.6 Encounter for fitting and adjustment of urinary device | CPT/HCPCS: 51705 ==

== ENCOUNTER → 2023-10-16 14:55 | Outpatient (BNVA) | payer MEDICARE, SELFPAY | PROVIDERS: PCP Internal Medicine; Visit Provider Urology | DX: N31.9 Neuromuscular dysfunction of bladder, unspecified (principal); R33.9 Retention of urine, unspecified | CPT/HCPCS: 51705 ==

== ENCOUNTER → 2023-11-20 14:35 | Outpatient (BNVA) | payer MEDICARE, SELFPAY | PROVIDERS: PCP Internal Medicine; Visit Provider Urology | DX: N31.9 Neuromuscular dysfunction of bladder, unspecified (principal); R33.9 Retention of urine, unspecified; Z46.6 Encounter for fitting and adjustment of urinary device | CPT/HCPCS: 51705 ==

== ENCOUNTER 2023-12-13 15:36 | Outpatient (AMB) | payer MEDICARE, SELFPAY ==
--- NOTE | 2023-12-13 16:00 | MHC.OFFVIS ---
Intake Visit Reasons: 6m follow up Intake Note: Patient is Present for Follow Up Urology Medication: Methenamine, Vitamin C, Bactrim Antibiotic Allergies: Penicillins Blood Thinners: None Allergies Penicillins Allergy (Intermediate, Verified 06/21/22 09:18) skin blisters HPI Comments Details: Og is a very pleasant [place] speaking male. He is a patient of Dr. Tucker. He is seen for the following urologic conditions - urinary retention Six-month follow-up Suprapubic tube has been in place for 18 months Continues with catheter exchange Antibiotics morning and evening of catheter 18 English Remains on methenamine with vitamin-C for suppression Happy with current situation Urinary retention Prior prostate procedure 2017 Had admission to emergency room in June with urinary retention Started on finasteride and Flomax Failed his 1st and 2nd voiding trial Cystoscopy 08/11 wide open bladder neck - prior TURP Unable to teach [facility] Suprapubic tube placed 06/12 [facility] Medical History (Updated 06/15/23 @ 15:36 by Paulo Degroot MD) Anemia Diverticulitis Urinary retention Enlarged aorta Bowel obstruction Surgical History Hx of appendectomy History of AAA (abdominal aortic aneurysm) repair Hx of cataract surgery History of prostate surgery History of surgery History of colon resection H/O colonoscopy History of colostomy reversal Social History Patient Tobacco Use Status: Former Tobacco user Review of Systems Const Denies chills and Denies fever(s) Card Reports no additional complaints and Denies syncope Resp Denies cough GI Denies abdominal pain and Denies heartburn Reports as per HPI and Denies change in libido Neuro Denies syncope Psych Denies change in libido Endo Denies change in libido Physical Exam Const General: cooperative, healthy appearing, comfortable and no acute distress Orientation/consciousness: patient oriented x3 HEENT Face and sinus: Yes normal facial exam Mouth: moist mucous membranes Neck Neck: Yes normal visual inspection, Yes full ROM and Yes trachea midline Chest Chest palpation & inspection: normal inspection of the chest Resp Effort & Inspection: normal respiratory effort, able to speak in complete sentences and no respiratory distress GI Inspection: Yes normal to inspection Back/Spine/Pelvis Cervical Spine: normal cervical lordosis Thoracic/Lumbar Spine: thoracic and lumbar spine normal to inspection Skin General skin exam: no rashes or lesions noted Neuro General: patient oriented x3, gait normal, tone normal and moves all extremities Extrem General: Yes normal to inspection and Yes capillary refill normal Assessment & Plan Assessment & Plan (1) Urinary retention: Comment: Suprapubic tube Code(s): R33.9 - Retention of urine, unspecified Category: Medical (2) Hypotonic neurogenic bladder: Code(s): N31.9 - Neuromuscular dysfunction of bladder, unspecified Category: Medical Plan Six-month follow-up Medications: Refilled sulfamethoxazole-trimethoprim 800-160 mg (Bactrim DS) Take 1 tablet morning and afternoon of suprapubic tube change 1 tab PO bid 24 tabs 0RF 12 days R33.9 - Retention of urine, unspecified Patient Instructions: Imaging studies, laboratory and physical exam results were discussed and reviewed in detail. No major barriers to patient understanding were identified. An opportunity to ask questions regarding the treatment plan was provided. All questions were answered. The patient expressed understanding and agreement with the above treatment plan. The patient is aware they should contact our office by phone for worsening of their current condition or the appearance of new urologic symptoms. Compliance is encouraged with any medications and followup testing that is ordered. It is a privilege to participate in the urologic care of your patient. If you have any questions or concerns regarding treatment for the above conditions, or other urologic issues, please do not hesitate to contact me. The office telephone contact is [phone]. This note is constructed using voice recognition software. While every effort has been made to ensure accuracy interior design program chair errors may have been included. Yours sincerely, Dr Paulo Degroot MD, [facility] - Urology Providers of Expert, Compassionate Care for the Genitourinary System Coding Level of Care Code Est Pt Level 3 (67922) Diagnoses Urinary retention R33.9 Hypotonic neurogenic bladder N31.9
== END 2023-12-13 16:33 | disposition home or self-care (01) ==
PROVIDERS: PCP Internal Medicine; Visit Provider Urology
DX: R33.9 Retention of urine, unspecified (principal); N31.9 Neuromuscular dysfunction of bladder, unspecified
CPT/HCPCS: 99213

== ENCOUNTER → 2023-12-13 15:36 | Outpatient (BNVA) | payer MEDICARE, SELFPAY | PROVIDERS: PCP Internal Medicine; Visit Provider Urology | DX: R33.9 Retention of urine, unspecified (principal); N31.9 Neuromuscular dysfunction of bladder, unspecified | CPT/HCPCS: 99212 ==

== ENCOUNTER → 2023-12-25 14:31 | Outpatient (BNVA) | payer MEDICARE, SELFPAY | PROVIDERS: PCP Internal Medicine; Visit Provider Urology | DX: N31.9 Neuromuscular dysfunction of bladder, unspecified (principal); R33.9 Retention of urine, unspecified | CPT/HCPCS: 51705 ==

== ENCOUNTER → 2024-01-30 14:33 | Outpatient (BNVA) | payer MEDICARE, SELFPAY | PROVIDERS: PCP Internal Medicine; Visit Provider Urology | DX: N31.9 Neuromuscular dysfunction of bladder, unspecified (principal); R33.9 Retention of urine, unspecified | CPT/HCPCS: 51705 ==

== ENCOUNTER → 2024-03-06 14:37 | Outpatient (BNVA) | payer MEDICARE, SELFPAY | PROVIDERS: PCP Internal Medicine; Visit Provider Urology | DX: N31.9 Neuromuscular dysfunction of bladder, unspecified (principal); R33.9 Retention of urine, unspecified; Z46.6 Encounter for fitting and adjustment of urinary device; Z93.50 Unspecified cystostomy status | CPT/HCPCS: 51705 ==

== ENCOUNTER → 2024-04-10 14:35 | Outpatient (BNVA) | payer MEDICARE, SELFPAY | PROVIDERS: PCP Internal Medicine; Visit Provider Urology | DX: N31.9 Neuromuscular dysfunction of bladder, unspecified (principal); R33.9 Retention of urine, unspecified | CPT/HCPCS: 51705 ==

== ENCOUNTER → 2024-05-15 14:43 | Outpatient (BNVA) | payer MEDICARE, SELFPAY | PROVIDERS: PCP Internal Medicine; Visit Provider Urology | DX: N31.9 Neuromuscular dysfunction of bladder, unspecified (principal); Z46.6 Encounter for fitting and adjustment of urinary device; Z93.50 Unspecified cystostomy status | CPT/HCPCS: 51705 ==

== ENCOUNTER 2024-06-12 15:37 | Outpatient (AMB) | payer MEDICARE, SELFPAY ==
--- NOTE | 2024-06-12 15:52 | MHC.OFFVIS ---
Intake Visit Reasons: 6M/4w cath change Intake Note: Patient is present for 6M/4W CATH CHANGE Urology Medication:VITAMIN C Antibiotic Allergy:PENICILLIN Blood Thinner:NONE Production Machine Operator Required: No Allergies Penicillins Allergy (Intermediate, Verified 06/12/24 15:53) skin blisters HPI Comments Details: Og is a very pleasant Belarusian speaking male. He is a patient of Dr. Tucker. He is seen for the following urologic conditions - urinary retention Six-month follow-up Continues with catheter exchange Antibiotics morning and evening of catheter 18 [place] Remains on methenamine with vitamin-C for suppression Happy with current situation has been happy too Urinary retention Prior prostate procedure 2017 Had admission to emergency room in June with urinary retention Started on finasteride and Flomax Failed his 1st and 2nd voiding trial Cystoscopy 08/11 wide open bladder neck - prior TURP Unable to teach CIC Suprapubic tube placed 06/12 [facility] Medical History (Updated 06/15/23 @ 15:36 by Paulo Degroot MD) Anemia Diverticulitis Urinary retention Enlarged aorta Bowel obstruction Surgical History Hx of appendectomy History of AAA (abdominal aortic aneurysm) repair Hx of cataract surgery History of prostate surgery History of surgery History of colon resection H/O colonoscopy History of colostomy reversal Social History Patient Tobacco Use Status: Former Tobacco user Review of Systems Const Denies chills and Denies fever(s) Card Reports no additional complaints and Denies syncope Resp Denies cough GI Denies abdominal pain and Denies heartburn Reports as per HPI and Denies change in libido Neuro Denies syncope Psych Denies change in libido Endo Denies change in libido Physical Exam Const General: cooperative, healthy appearing, comfortable and no acute distress Orientation/consciousness: patient oriented x3 HEENT Face and sinus: Yes normal facial exam Mouth: moist mucous membranes Neck Neck: Yes normal visual inspection, Yes full ROM and Yes trachea midline Chest Chest palpation & inspection: normal inspection of the chest Resp Effort & Inspection: normal respiratory effort, able to speak in complete sentences and no respiratory distress GI Inspection: Yes normal to inspection Back/Spine/Pelvis Cervical Spine: normal cervical lordosis Thoracic/Lumbar Spine: thoracic and lumbar spine normal to inspection Skin General skin exam: no rashes or lesions noted Neuro General: patient oriented x3, gait normal, tone normal and moves all extremities Extrem General: Yes normal to inspection and Yes capillary refill normal Office Procedures Bladder/Catheter Procedure Details: 20 fr Bard catheter replaced with new 18 fr Bard catheter w/ 7.5 ml balloon and blue plug, pt tolerated removal well. Pt requesting 18fr over 20 Fr. Verified okay to change down size with Dr. Degroot. Patient with mild fungal rash around SP insertion site. Patients will look and see if she can get inter dry fabrics to place in that area at the store, if not she will call the office to see if we can send a script to a medical supply store. 5 weeks for next change with nursing [id number] of bladder tube Procedure code (CPT) selection complete Assessment & Plan Assessment & Plan (1) Urinary retention: Comment: Suprapubic tube Code(s): R33.9 - Retention of urine, unspecified Category: Medical (2) Hypotonic neurogenic bladder: Code(s): N31.9 - Neuromuscular dysfunction of bladder, unspecified Category: Medical Plan Six-month follow-up Continue with nursing suprapubic tube exchange Orders: Orders AMB Bladder/Catheter Procedure 06/12/24 N31.9 - Neuromuscular dysfunction of bladder, unspecified Medications: Refilled methenamine hippurate 1 g PO DAILY 90 tabs 1RF UTI suppression 90 days Patient Instructions: This note is constructed using voice recognition software. While every effort has been made to ensure accuracy pack mule worker errors may have been included. Imaging studies, laboratory and physical exam results were discussed and reviewed in detail. No major barriers to patient understanding were identified. An opportunity to ask questions regarding the treatment plan was provided. All questions were answered. The patient expressed understanding and agreement with the above treatment plan. The patient is aware they should contact our office by phone for worsening of their current condition or the appearance of new urologic symptoms. Compliance is encouraged with any medications and followup testing that is ordered. It is a privilege to participate in the urologic care of your patient. If you have any questions or concerns regarding treatment for the above conditions, or other urologic issues, please do not hesitate to contact me. The office telephone contact is [phone]. Sincerely, Dr Paulo Degroot MD, [facility] - Urology Compassionate Specialist Care for the Genitourinary System Coding Level of Care Code Est Pt Level 3 (96058) Complex EM visit Add On G2211 Diagnoses Urinary retention R33.9 Hypotonic neurogenic bladder N31.9 CPT Codes Bladder/Catheter Procedure - CPT: 43756-Hxtiti of bladder tube ([id number])
== END 2024-06-12 16:26 | disposition home or self-care (01) ==
PROVIDERS: PCP Internal Medicine; Visit Provider Urology
DX: R33.9 Retention of urine, unspecified (principal)
CPT/HCPCS: 51705; 99213

== ENCOUNTER → 2024-06-12 15:37 | Outpatient (BNVA) | payer MEDICARE, SELFPAY | PROVIDERS: PCP Internal Medicine; Visit Provider Urology | DX: R33.9 Retention of urine, unspecified (principal); N31.9 Neuromuscular dysfunction of bladder, unspecified | CPT/HCPCS: 51705; 99212 ==

== ENCOUNTER → 2024-07-17 14:27 | Outpatient (BNVA) | payer MEDICARE, SELFPAY | PROVIDERS: PCP Internal Medicine; Visit Provider Urology | DX: N31.9 Neuromuscular dysfunction of bladder, unspecified (principal) | CPT/HCPCS: 51705 ==

== ENCOUNTER → 2024-08-26 13:42 | Outpatient (BNVA) | payer MEDICARE, SELFPAY | PROVIDERS: PCP Internal Medicine; Visit Provider Urology | DX: Z46.6 Encounter for fitting and adjustment of urinary device (principal); R33.9 Retention of urine, unspecified | CPT/HCPCS: 51705 ==

== ENCOUNTER → 2024-09-30 14:12 | Outpatient (BNVA) | payer MEDICARE, SELFPAY | PROVIDERS: PCP Internal Medicine; Visit Provider Urology | DX: Z46.6 Encounter for fitting and adjustment of urinary device (principal) | CPT/HCPCS: 51705 ==

== ENCOUNTER → 2024-11-05 14:14 | Outpatient (BNVA) | payer MEDICARE, SELFPAY | PROVIDERS: PCP Internal Medicine; Visit Provider Urology | DX: Z46.6 Encounter for fitting and adjustment of urinary device (principal); N31.9 Neuromuscular dysfunction of bladder, unspecified; R33.9 Retention of urine, unspecified | CPT/HCPCS: 51705 ==

== ENCOUNTER 2024-12-11 15:30 | Outpatient (AMB) | payer MEDICARE, SELFPAY ==
--- NOTE | 2024-12-11 15:49 | A.OFFVIS_ITS ---
Intake Visit Reasons: 6M follow up and cath change Intake Note: Patient is present for 6M f/u CATH CHANGE Urology Medication:VITAMIN C, methenamine Blood Thinner:NONE Qa Architect Required: No Accompanied by: Self / Same As Patient Allergies Penicillins Allergy (Intermediate, Verified 12/11/24 15:50) skin blisters HPI Comments Details: Og is a very pleasant Kinyarwanda speaking male. He is a patient of Dr. Tucker. He is seen for the following urologic conditions - urinary retention Six-month follow-up Continues with catheter exchange Antibiotics morning and evening of catheter 18 [place] Island[place] Remains on methenamine with vitamin-C for suppression Stable Continue periodic surveillance Urinary retention Prior prostate procedure 2016 Had admission to emergency room in June with urinary retention Started on finasteride and Flomax Failed his 1st and 2nd voiding trial Cystoscopy 08/11 wide open bladder neck - prior TURP Unable to teach CIC Suprapubic tube placed 06/12 [facility] Medical History (Updated 06/15/23 @ 15:36 by Paulo Degroot MD) Anemia Diverticulitis Urinary retention Enlarged aorta Bowel obstruction Surgical History Hx of appendectomy History of AAA (abdominal aortic aneurysm) repair Hx of cataract surgery History of prostate surgery History of surgery History of colon resection H/O colonoscopy History of colostomy reversal Social History Patient Tobacco Use Status: Former Tobacco user Review of Systems Const Denies chills and Denies fever(s) Card Reports no additional complaints and Denies syncope Resp Denies cough GI Denies abdominal pain and Denies heartburn Reports as per HPI and Denies change in libido Neuro Denies syncope Psych Denies change in libido Endo Denies change in libido Physical Exam Const General: cooperative, healthy appearing, comfortable and no acute distress Orientation/consciousness: patient oriented x3 HEENT Face and sinus: Yes normal facial exam Mouth: moist mucous membranes Neck Neck: Yes normal visual inspection, Yes full ROM and Yes trachea midline Chest Chest palpation & inspection: normal inspection of the chest Resp Effort & Inspection: normal respiratory effort, able to speak in complete sentences and no respiratory distress GI Inspection: Yes normal to inspection Back/Spine/Pelvis Cervical Spine: normal cervical lordosis Thoracic/Lumbar Spine: thoracic and lumbar spine normal to inspection Skin General skin exam: no rashes or lesions noted Neuro General: patient oriented x3, gait normal, tone normal and moves all extremities Extrem General: Yes normal to inspection and Yes capillary refill normal Office Procedures Bladder/Catheter Procedure Details: Patient presents to the office today for a 5 week SP tube change. 18 fr akash catheter replaced with new 18 fr akash catheter w/ 7.5 ml balloon and blue plug, pt tolerated removal well. 5 weeks for next change with nursing [id number] of bladder tube Procedure code (CPT) selection complete Assessment & Plan Assessment & Plan (1) Urinary retention: Comment: Suprapubic tube Code(s): R33.9 - Retention of urine, unspecified Category: Medical (2) Hypotonic neurogenic bladder: Code(s): N31.9 - Neuromuscular dysfunction of bladder, unspecified Category: Medical Plan Six-month follow-up Orders: Orders AMB Bladder/Catheter Procedure 12/11/24 R33.9 - Retention of urine, unspecified Medications: Refilled methenamine hippurate 1 g PO DAILY 90 tabs 1RF UTI suppression 90 days ascorbic acid (vitamin C) 500 mg PO DAILY 90 tabs 1RF UTI suppression 90 days sulfamethoxazole-trimethoprim 800-160 mg (Bactrim DS) Take 1 tablet morning and afternoon of suprapubic tube change 1 tab PO bid 24 tabs 0RF 12 days R33.9 - Retention of urine, unspecified Patient Instructions: This note is constructed using voice recognition software. While every effort has been made to ensure accuracy exercise physiologist certified errors may have been included. Imaging studies, laboratory and physical exam results were discussed and reviewed in detail. No major barriers to patient understanding were identified. An opportunity to ask questions regarding the treatment plan was provided. All questions were answered. The patient expressed understanding and agreement with the above treatment plan. The patient is aware they should contact our office by phone for worsening of their current condition or the appearance of new urologic symptoms. Compliance is encouraged with any medications and followup testing that is ordered. It is a privilege to participate in the urologic care of your patient. If you have any questions or concerns regarding treatment for the above conditions, or other urologic issues, please do not hesitate to contact me. The office telephone contact is [phone]. Sincerely, Dr Paulo Degroot MD, [facility] - Urology Compassionate Specialist Care for the Genitourinary System Coding Level of Care Code Est Pt Level 3 (93683) Complex visit Add On G2211 Diagnoses Urinary retention R33.9 Hypotonic neurogenic bladder N31.9 CPT Codes Bladder/Catheter Procedure - CPT: 74184-Ggjjhn of bladder tube ([id number])
== END 2024-12-11 16:21 | disposition home or self-care (01) ==
LOC: HO.HUSH 15:30
PROVIDERS: PCP Internal Medicine; Visit Provider Urology
DX: R33.9 Retention of urine, unspecified (principal)
CPT/HCPCS: 51705; 99213; G2211

== ENCOUNTER → 2024-12-11 15:30 | Outpatient (BNVA) | payer MEDICARE, SELFPAY | PROVIDERS: PCP Internal Medicine; Visit Provider Urology | DX: Z46.6 Encounter for fitting and adjustment of urinary device (principal); R33.9 Retention of urine, unspecified | CPT/HCPCS: 51705; 99212 ==

== ENCOUNTER → 2025-01-14 14:17 | Outpatient (BNVA) | payer MEDICARE, SELFPAY | PROVIDERS: PCP Internal Medicine; Visit Provider Urology | DX: Z46.6 Encounter for fitting and adjustment of urinary device (principal); N31.9 Neuromuscular dysfunction of bladder, unspecified; R33.9 Retention of urine, unspecified; Z93.50 Unspecified cystostomy status | CPT/HCPCS: 51705 ==

== ENCOUNTER → 2025-02-19 14:11 | Outpatient (BNVA) | payer MEDICARE, SELFPAY | PROVIDERS: PCP Internal Medicine; Visit Provider Urology | DX: R33.9 Retention of urine, unspecified (principal); N31.9 Neuromuscular dysfunction of bladder, unspecified | CPT/HCPCS: 51705 ==